=== PATIENT | male | born 1985 | race Two or more races ===

== ENCOUNTER 2022-12-04 17:39 | Emergency (ER) | payer OTHER ==
[~2022-12-04] VITALS: Ht 167.6 cm; Wt 81.6 kg
[2022-12-04 17:58] VITALS: BP 139/91
--- NOTE | 2022-12-04 17:58 | NUR ---
"Been Having Sore throat/cough xcouple days now back pain"
== END 2022-12-04 19:00 | disposition home or self-care (01) ==
LOC: ER 18:11
DX: B34.9 Viral infection, unspecified (principal)

== ENCOUNTER 2023-01-10 12:18 | Emergency (ER) | payer OTHER ==
[~2023-01-10] VITALS: Ht 175.3 cm; Wt 86.2 kg
[2023-01-10] MEDS ORDERED: MAG HYDROX/AL HYDROX/SIMETH 30 ML UDC PO ONE (13:30)
[2023-01-10] MEDS ORDERED: FAMOTIDINE (20 MG) 20 MG TABLET PO ONE (13:30)
[2023-01-10] MEDS ORDERED: ONDANSETRON HCL 4 MG/5 ML SOLUTION PO ONE (13:30)
--- NOTE | 2023-01-10 13:40 | NUR ---
BIB SELF C/C NAUSEA. A/O X 3
[2023-01-10] MEDS ORDERED: FAMOTIDINE (20 MG) 20 MG TABLET ONE (13:44)
[2023-01-10] MEDS ORDERED: MAG HYDROX/AL HYDROX/SIMETH 30 ML UDC ONE (13:44)
[2023-01-10] MEDS ORDERED: ONDANSETRON 4 MG TAB.RAPDIS ONE (13:44)
--- NOTE | 2023-01-10 15:02 | NUR ---
Patient discharged to home in stable condition. Written and verbal after care instructions given. Patient verbalizes understanding of instruction.
[2023-01-10 15:03] VITALS: BP 154/96
== END 2023-01-10 15:03 | disposition home or self-care (01) ==
LOC: ER 12:22
DX: T40.991A Poisoning by other psychodysleptics [hallucinogens], accidental (unintentional), initial encounter (principal); Y92.89 Other specified places as the place of occurrence of the external cause
CPT/HCPCS: 99284; 80307; Q0162